=== PATIENT | female | born 1930 | race Caucasian/White ===

== ENCOUNTER 2017-05-09 10:14 | Inpatient (IN) | payer MEDICARE ==
--- NOTE | 2017-05-09 10:46 | ED ---
General Adult HPI - General Chief complaint: Arrhythmia/Palpitations Stated complaint: Irregular heart beat Time Seen by Provider: 05/09/17 10:36 Source: patient, family, RN notes reviewed Mode of arrival: wheelchair Limitations: no limitations - History of Present Illness Initial comments: Patient is a pleasant 86-year-old female presenting to the emergency Department with new-onset atrial fibrillation. Patient was at the doctor's office did notice atrial fibrillation with rate between 101 110. No history of similar symptoms previously. Dr. English did call and request patient evaluation with cardiology consult. Patient otherwise feels fine. Patient has no complaints of chest discomfort or fatigue or dyspnea. No palpitations. - Related Data Home Medications Medication Instructions Recorded Confirmed Insulin Detemir [Levemir Flextouch] 25 mg PO HS 05/09/17 05/09/17 Lisinopril-Hctz 20-25 mg 1 tab PO DAILY 05/09/17 05/09/17 [Zestoretic 20-25] Lovastatin [Mevacor] 20 mg PO DAILY 05/09/17 05/09/17 Metoprolol Succinate (ER) [Toprol 100 mg PO DAILY 05/09/17 05/09/17 Xl] Mirabegron [Myrbetriq] 50 mg PO DAILY 05/09/17 05/09/17 Prazosin [Minipress] 5 mg PO BID 05/09/17 05/09/17 Allergies Allergy/AdvReac Type Severity Reaction Status Date / Time Sulfa (Sulfonamide Allergy Unknown Verified 05/09/17 10:27 Antibiotics) Review of Systems ROS Statement: Those systems with pertinent positive or pertinent negative responses have been documented in the HPI. ROS Other: All systems not noted in ROS Statement are negative. Constitutional: Denies: fever Eyes: Denies: eye pain ENT: Denies: ear pain Respiratory: Denies: cough, dyspnea Cardiovascular: Denies: chest pain Endocrine: Denies: fatigue Gastrointestinal: Denies: abdominal pain Genitourinary: Denies: dysuria Musculoskeletal: Denies: back pain Skin: Denies: rash Neurological: Denies: weakness Past Medical History Past Medical History: Diabetes Mellitus, Hyperlipidemia, Hypertension History of Any Multi-Drug Resistant Organisms: None Reported Past Psychological History: No Psychological Hx Reported Smoking Status: Never smoker Past Alcohol Use History: None Reported Past Drug Use History: None Reported General Exam Limitations: no limitations General appearance: alert, in no apparent distress Head exam: Present: atraumatic Eye exam: Present: normal appearance, PERRL ENT exam: Present: normal oropharynx Neck exam: Present: normal inspection Respiratory exam: Present: normal lung sounds bilaterally Cardiovascular Exam: Present: tachycardia, irregular rhythm GI/Abdominal exam: Present: soft. Absent: tenderness Extremities exam: Present: normal inspection Neurological exam: Present: alert Psychiatric exam: Present: normal affect, normal mood Skin exam: Present: normal color Course Vital Signs 05/09/17 10:24 Temperature 97.8 F Pulse Rate 142 H Respiratory 20 Rate Blood Pressure 172/105 O2 Sat by Pulse 99 Oximetry EKG Findings - EKG Comments: EKG Findings:: A. fib with RVR, rate 109. QRS 98. QT 334. QTC 449. Normal axis. Normal QRS. Nonspecific ST-T. Medical Decision Making - Medical Decision Making Patient reevaluated and heart rate has improved. Heart rate between 101 7 Cardizem. Case discussed with practitioner Leah who will admit for Dr. hall, who is covering for hospital call. - Lab Data Result diagrams: 05/09/17 10:45 05/09/17 10:45 Lab Results 05/09/17 05/09/17 05/09/17 Range/Units 10:45 10:45 10:45 WBC 7.6 (3.8-10.6) k/uL RBC 4.48 (3.80-5.40) m/uL Hgb 12.7 (11.4-16.0) gm/dL Hct 40.3 (34.0-46.0) % MCV 90.1 (80.0-100.0) fL MCH 28.4 (25.0-35.0) pg MCHC 31.5 (31.0-37.0) g/dL RDW 13.6 (11.5-15.5) % Plt Count 217 (150-450) k/uL Neutrophils % 63 % Lymphocytes % 27 % Monocytes % 5 % Eosinophils % 2 % Basophils % 1 % Neutrophils # 4.8 (1.3-7.7) k/uL Lymphocytes # 2.0 (1.0-4.8) k/uL Monocytes # 0.4 (0-1.0) k/uL Eosinophils # 0.1 (0-0.7) k/uL Basophils # 0.1 (0-0.2) k/uL PT (9.0-12.0) sec INR (<1.1) APTT (22.0-30.0) sec Sodium 143 (137-145) mmol/L Potassium 4.1 (3.5-5.1) mmol/L Chloride 102 (98-107) mmol/L Carbon Dioxide 28 (22-30) mmol/L Anion Gap 13 mmol/L BUN 18 H (7-17) mg/dL Creatinine 0.80 (0.52-1.04) mg/dL Est GFR (MDRD) Af Amer >60 (>60 ml/min/1.73 sqM) Est GFR (MDRD) Non-Af >60 (>60 ml/min/1.73 sqM) Glucose 85 (74-99) mg/dL POC Glucose (mg/dL) (75-99) mg/dL POC Glu Sr. Logistics Analyst ID Calcium 10.2 (8.4-10.2) mg/dL Magnesium 1.6 (1.6-2.3) mg/dL Total Bilirubin 0.9 (0.2-1.3) mg/dL AST 19 (14-36) U/L ALT 27 (9-52) U/L Alkaline Phosphatase 68 (38-126) U/L Total Creatine Kinase 57 (30-135) U/L CK-MB (CK-2) 0.7 (0.0-2.4) ng/mL CK-MB (CK-2) Rel Index 1.2 Troponin I <0.012 (0.000-0.034) ng/mL Total Protein 8.1 (6.3-8.2) g/dL Albumin 4.5 (3.5-5.0) g/dL TSH 1.570 (0.465-4.680) mIU/L Free T4 1.41 (0.78-2.19) ng/dL Free T3 pg/mL 3.1 (2.8-5.3) pg/ml 05/09/17 05/09/17 Range/Units 10:45 13:19 WBC (3.8-10.6) k/uL RBC (3.80-5.40) m/uL Hgb (11.4-16.0) gm/dL Hct (34.0-46.0) % MCV (80.0-100.0) fL MCH (25.0-35.0) pg MCHC (31.0-37.0) g/dL RDW (11.5-15.5) % Plt Count (150-450) k/uL Neutrophils % % Lymphocytes % % Monocytes % % Eosinophils % % Basophils % % Neutrophils # (1.3-7.7) k/uL Lymphocytes # (1.0-4.8) k/uL Monocytes # (0-1.0) k/uL Eosinophils # (0-0.7) k/uL Basophils # (0-0.2) k/uL PT 11.2 (9.0-12.0) sec INR 1.1 (<1.1) APTT 25.0 (22.0-30.0) sec Sodium (137-145) mmol/L Potassium (3.5-5.1) mmol/L Chloride (98-107) mmol/L Carbon Dioxide (22-30) mmol/L Anion Gap mmol/L BUN (7-17) mg/dL Creatinine (0.52-1.04) mg/dL Est GFR (MDRD) Af Amer (>60 ml/min/1.73 sqM) Est GFR (MDRD) Non-Af (>60 ml/min/1.73 sqM) Glucose (74-99) mg/dL POC Glucose (mg/dL) 113 H (75-99) mg/dL POC Glu Sr. Logistics Analyst ID McDaid, Lilian Calcium (8.4-10.2) mg/dL Magnesium (1.6-2.3) mg/dL Total Bilirubin (0.2-1.3) mg/dL AST (14-36) U/L ALT (9-52) U/L Alkaline Phosphatase (38-126) U/L Total Creatine Kinase (30-135) U/L CK-MB (CK-2) (0.0-2.4) ng/mL CK-MB (CK-2) Rel Index Troponin I (0.000-0.034) ng/mL Total Protein (6.3-8.2) g/dL Albumin (3.5-5.0) g/dL TSH (0.465-4.680) mIU/L Free T4 (0.78-2.19) ng/dL Free T3 pg/mL (2.8-5.3) pg/ml - Radiology Data Radiology results: image reviewed (1 view chest x-ray shows cardiomegaly. Old right proximal humerus fracture.) Critical Care Time Critical Care Time: Yes Total Critical Care Time: 31 Disposition Clinical Impression: Atrial fibrillation with RVR Disposition: ADMITTED IP TO THIS [facility] Referrals: Rodo English MD [Primary Care Provider] - 1-2 days Decision Time: 14:04
[2017-05-09] MEDS ORDERED: DILTIAZEM 5 MG/ML 5 ML VIAL IVP STA (10:50)
--- NOTE | 2017-05-09 12:46 | XR ---
EXAMINATION TYPE: XR chest 1V portable DATE OF EXAM: 05/09/2017 COMPARISON: 06/19/2012 HISTORY: Irregular heartbeat TECHNIQUE: Single frontal view of the chest is obtained. FINDINGS: Heart is enlarged. Chronic deformity of the right humerus suggest previous trauma. No over t failure, pneumothorax or focal pneumonia. Underlying COPD not excluded. IMPRESSION: Cardiomegaly
[2017-05-09 12:51] LABS: Basophils # (A) 0.1 k/uL (0-0.2); Basophils % (A) 1 %; CH 28.6; CHCM 31.9; Eosinophils # (A) 0.1 k/uL (0-0.7); Eosinophils % (A) 2 %; HCT 40.3 % (34.0-46.0); HDW 2.31; HGB 12.7 gm/dL (11.4-16.0); Luc # (Auto) 0.18; Luc % (Auto) 2; Lymphocytes % (A) 27 %; MCH 28.4 pg (25.0-35.0); MCHC 31.5 g/dL (31.0-37.0); MCV 90.1 fL (80.0-100.0); Mean Platelet Volume 9.2; Monocytes # (A) 0.4 k/uL (0-1.0); Monocytes % (A) 5 %; Neutrophils # (A) 4.8 k/uL (1.3-7.7); Neutrophils % (A) 63 %; RBC 4.48 m/uL (3.80-5.40); RDW 13.6 % (11.5-15.5); WBC 7.6 k/uL (3.8-10.6); WBC (Perox) 7.55
[2017-05-09] MEDS: DILTIAZEM 125 MG in SODIUM CHLORIDE 0.9% 100 ML IV ONE (12:57)
[2017-05-09 13:04] LABS: INR 1.1 (<1.1); Prothrombin Time 11.2 sec (9.0-12.0)
[2017-05-09 13:09] LABS: ALT 27 U/L (9-52); AST 19 U/L (14-36); Alkaline Phosphatase 68 U/L (38-126); Anion Gap 13 mmol/L; Blood Urea Nitrogen 18 mg/dL (7-17); Calcium 10.2 mg/dL (8.4-10.2); Carbon Dioxide 28 mmol/L (22-30); Chloride 102 mmol/L (98-107); Glucose 85 mg/dL (74-99); Magnesium 1.6 mg/dL (1.6-2.3); Non-African American GFR(MDRD) >60 (>60 ml/min/1.73 sqM); Potassium 4.1 mmol/L (3.5-5.1); Sodium 143 mmol/L (137-145); Total Bilirubin 0.9 mg/dL (0.2-1.3); Total Protein 8.1 g/dL (6.3-8.2)
[2017-05-09 13:20] LABS: Glucose,Whole Blood 113 mg/dL (75-99)
[2017-05-09 13:21] LABS: Creatine Kinase 57 U/L (30-135)
[2017-05-09 13:32] LABS: Creatine Kinase MB 0.7 ng/mL (0.0-2.4); Troponin I <0.012 ng/mL (0.000-0.034)
[2017-05-09] MEDS ORDERED: HEPARIN SODIUM,PORCINE 5,000 UNIT/ML 1 ML VIAL IV ONE (14:04)
[2017-05-09] MEDS ORDERED: ASPIRIN 81 MG CHEW PO STA (14:04)
[2017-05-09] MEDS ORDERED: NITROGLYCERIN SL TABS 0.4 MG TAB SUBLINGUAL PRN (14:04)
[2017-05-09] MEDS ORDERED: HEPARIN SODIUM,PORCINE 5,000 UNIT/ML 1 ML VIAL IV PRN (14:04)
[2017-05-09] MEDS ORDERED: HEPARIN SODIUM,PORCINE/D5W PMX 25,000 UNIT in DEXTROSE/WATER 1 500ML.BAG IV SCH (14:15)
[2017-05-09 16:44] LABS: Glucose,Whole Blood 124 mg/dL (75-99)
[2017-05-09] MEDS: INSULIN LISPRO (humaLOG) 300 UNIT/3 ML VIAL SQ SCH ×2 (17:04→20:54)
[2017-05-09 17:08] LABS: Creatine Kinase 77 U/L (30-135)
[2017-05-09 17:21] LABS: Troponin I <0.012 ng/mL (0.000-0.034)
[2017-05-09] MEDS: PRAZOSIN 1 MG CAP PO SCH (20:49)
[2017-05-09 20:55] LABS: Glucose,Whole Blood 104 mg/dL (75-99)
[2017-05-09] MEDS ORDERED: INSULIN DETEMIR 100 UNIT/ML 10 ML VIAL SQ SCH (21:00)
[2017-05-09 22:27] LABS: Creatine Kinase 102 U/L (30-135)
[2017-05-09 22:40] LABS: Creatine Kinase MB 1.7 ng/mL (0.0-2.4); Troponin I <0.012 ng/mL (0.000-0.034)
[2017-05-10 05:43] VITALS: RESP 18
[2017-05-10 05:56] LABS: Glucose,Whole Blood 85 mg/dL (75-99)
[2017-05-10] MEDS: INSULIN LISPRO (humaLOG) 300 UNIT/3 ML VIAL SQ SCH ×2 (06:23→11:50)
[2017-05-10 06:28] LABS: Cholesterol 119 mg/dL (<200); HDL Cholesterol 33 mg/dL (40-60); Triglycerides 82 mg/dL (<150)
--- NOTE | 2017-05-10 06:28 | HP ---
DATE OF ADMISSION: 05/09/2017 PRESENTING COMPLAINT: Irregular heartbeat. HISTORY OF PRESENTING COMPLAINT: This is a pleasant 86-year-old patient of Dr. English. Patient was in the doctor's office and discovered to have atrial fibrillation running about one teens on EKG and patient sent down to the ER. Patient slightly feels weak and tired, but no other major symptoms. No chest pain or palpitations. Patient's chronic stable medical conditions include diabetes, hypertension, hyperlipidemia, osteoarthritis, urinary incontinence. Patient is sitting up in bed, comfortable. REVIEW OF SYSTEMS: CONSTITUTIONAL: Tired. HEENT: Decreased hearing. RESPIRATORY: Slight short of breath. CARDIOVASCULAR: As above. GASTROINTESTINAL: None GENITOURINARY: Urinary incontinence. DERMATOLOGICAL: None. HEMATOLOGICAL: None. LYMPHATIC: None. PSYCHIATRY: None. NEUROLOGICAL: None. MUSCULOSKELETAL: Pain in multiple joints. PAST HISTORY: Diabetes, hypertension, hyperlipidemia, osteoarthritis, urinary incontinence, claustrophobia. PAST SURGICAL HISTORY: Orthopedic surgery, tonsillectomy, ORIF of the left knee, hemorrhoidectomy, cataracts. SOCIAL HISTORY: Patient is . Does not smoke. No alcohol. FAMILY HISTORY: Dementia, hypertension. HOME MEDICATIONS: 1. Toprol XL 100 mg a day. 2. Minipress 5 mg p.o. b.i.d. 3. Myrbetriq 50 mg p.o. daily. 4. Mevacor 20 mg a day. 5. Zestoretic 20/25 one tablet p.o. daily. 6. Levemir 25 units subcu q.h.s. Allergies to SULFA. ON EXAMINATION: VITAL SIGNS ON PRESENTATION: Temperature 97.8, pulse 142, respirations 20, blood pressure 172/105, pulse ox 99% on room air. GENERAL APPEARANCE: Average built, sitting up, not in distress. EYES: Pupils equal. Conjunctivae normal. HEENT: External appearance of the nose and ears nose. Oral cavity normal. NECK: JVD not raised. Mass not palpable. RESPIRATORY: Effort normal. LUNGS: Fair air entry. CARDIOVASCULAR: Heart ( ) irregular. No edema. ABDOMEN: Soft, nontender. Liver and spleen not palpable. LYMPHATIC: No lymph node palpable in neck or axillae. PSYCHIATRY: Alert and oriented x3. Mood and affect normal. NEUROLOGICAL: Pupils equal. Cranial nerves grossly intact. Power and sensation grossly intact. INVESTIGATIONS: White count 7.6, hemoglobin 12.7. Potassium 4.1. BUN 18, creatinine 0.80. Accu-Cheks are noted. Troponin x2 are negative. TSH is 1.5. ASSESSMENT: 1. New onset of atrial fibrillation with rapid ventricular rate, age undetermined. 2. Obesity; body mass index 30.3. 3. Diabetes mellitus, type 2, chronically on insulin. 4. Essential hypertension. 5. Hyperlipidemia. 6. 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 7. Chronic urinary stress incontinence. PLAN: Patient is already on beta osiris. Was put on IV heparin in the ER. Put on a Cardizem drip. Cardiology was consulted. Care was discussed with the patient.
--- NOTE | 2017-05-10 08:27 | P.CRDCN ---
History of Present Illness Consult date: 05/10/17 Requesting physician: Hadley Espinal Consult reason: atrial fibrillation Chief complaint: Atrial Fibrillation History of present illness: This is a pleasant 86-year-old female with history of hypertension, diabetes, hyperlipidemia, she is a nonsmoker, no alcohol, rare caffeine, who was at her routine office visit with her primary care doctor yesterday, and EKG was performed in the office which revealed atrial fibrillation, and for this reason patient was referred to the hospital for admission. Patient denies any prior history of atrial fibrillation. She denies any palpitations, no shortness of breath, no dizziness or lightheadedness. EKG on arrival here showed atrial fibrillation with a heart rate of 109 on arrival. Chest x-ray revealed cardiomegaly. CBC normal, potassium 4.1, BUN 18, creatinine 0.8. Troponins are negative 3. Magnesium level I.6. TSH 1.5, free T4 1 0.4, free T3 3 0.1. Rhythm this morning shows atrial fibrillation with a heart rate in the 80s. Patient is currently on a Cardizem drip at 5 mg per hour and a heparin drip. I did educate the patient this morning regarding the need for anticoagulation for stroke prevention. We will check to see if the patient has coverage for Eliquis. Echocardiogram with Doppler study has been requested. Past Medical History Past Medical History: Diabetes Mellitus, Hyperlipidemia, Hypertension, Memory Impairment, Osteoarthritis (OA) Additional Past Medical History / Comment(s): PAST FALLS, FX RT KNEE(HAD SX), PAST FX RT WRIST,INCONT OF URINE WEARS A BRIEF, SHORT TERM MEMOEY PROBLEMS. EXCORIATION TO BOTTOM. History of Any Multi-Drug Resistant Organisms: None Reported Past Surgical History: Orthopedic Surgery, Tonsillectomy Additional Past Surgical History / Comment(s): ORIF LT KNEE 2011, HEMORROIDECTOMY, CATARACTS. Past Anesthesia/Blood Transfusion Reactions: No Reported Reaction Additional Past Anesthesia/Blood Transfusion Reaction / Comment(s): CLAUSTERPHOBIA Past Psychological History: No Psychological Hx Reported Additional Psychological History / Comment(s): PT LIVES WITH HER AND 1 CAT IN A 1 LEVEL HOME THAT HAS 5 STEPS TO ENTER. PT USES A CANE. NO OTHER MEDICAL EQUIPMNET. NO OUTSIUDE SERVICES. Smoking Status: Former smoker Past Alcohol Use History: None Reported Additional Past Alcohol Use History / Comment(s): PER PT'S DAUGHTER, PT SMOKED FOR 10 YEARS(STARTED 1951) AND QUIT 55 EYARS AGO(1961), 1 PACK WOULD LAST A WEEK. Past Drug Use History: None Reported - Past Family History Mother Family Medical History: Dementia, Hypertension Father Family Medical History: No Reported History Additional Family Medical History / Comment(s): FROM OLD AGE. Medications and Allergies Home Medications Medication Instructions Recorded Confirmed Type Insulin Detemir [Levemir Flextouch] 25 mg PO HS 05/09/17 05/09/17 History Lisinopril-Hctz 20-25 mg 1 tab PO DAILY 05/09/17 05/09/17 History [Zestoretic 20-25] Lovastatin [Mevacor] 20 mg PO DAILY 05/09/17 05/09/17 History Metoprolol Succinate (ER) [Toprol 100 mg PO DAILY 05/09/17 05/09/17 History Xl] Mirabegron [Myrbetriq] 50 mg PO DAILY 05/09/17 05/09/17 History Prazosin [Minipress] 5 mg PO BID 05/09/17 05/09/17 History Allergies Allergy/AdvReac Type Severity Reaction Status Date / Time Sulfa (Sulfonamide Allergy Unknown Verified 05/09/17 10:27 Antibiotics) Physical Exam Vitals: Vital Signs Temp Pulse Pulse Resp BP BP Pulse Ox 05/10/17 04:00 97.3 F L 75 18 143/86 96 05/10/17 00:03 73 16 106/55 96 05/09/17 20:00 97.1 F L 77 16 142/66 97 05/09/17 15:33 96.7 F L 89 18 129/70 95 05/09/17 14:45 86 20 158/92 100 05/09/17 14:23 97.8 F 100 20 168/79 98 05/09/17 13:23 98 F 104 H 20 155/95 99 05/09/17 10:24 97.8 F 142 H 20 172/105 99 Intake and Output 05/09/17 05/10/17 05/10/17 22:59 06:59 14:59 Intake Total 165.315 Balance 165.315 Intake: Intake, IV Titration 165.315 Amount Heparin Sodium,Porcine/ 165.315 D5w Pmx 25,000 unit In Dextrose/Water 1 500ml. bag @ 12 UNITS/KG/HR 19. 26 mls/hr IV .Q24H [facility] Rx #:[id number] Other: # Voids 2 1 Weight 80.2 kg 80.5 kg PHYSICAL EXAMINATION: HEENT: Head is atraumatic, normocephalic. Pupils equal, round. Neck is supple. There is no elevated jugular venous pressure. HEART EXAMINATION: Heart S1 and S2 irregularly irregular a systolic murmur is heard CHEST EXAMINATION: Lungs are clear to auscultation and precussion. No chest wall tenderness is noted on palpation or with deep breathing. ABDOMEN: Soft, obese, nontender. Bowel sounds are heard. No organomegaly noted. EXTREMITIES: 2+ peripheral pulses with evidence of peripheral edema and no calf tenderness noted. NEUROLOGIC patient is awake, alert and oriented -3.] . Results 05/09/17 10:45 05/09/17 10:45 Cardiac Enzymes 05/09/17 05/09/17 05/09/17 Range/Units 10:45 10:45 16:34 AST 19 (14-36) U/L CK-MB (CK-2) 0.7 1.0 (0.0-2.4) ng/mL Troponin I <0.012 <0.012 (0.000-0.034) ng/mL 05/09/17 Range/Units 21:47 AST (14-36) U/L CK-MB (CK-2) 1.7 (0.0-2.4) ng/mL Troponin I <0.012 (0.000-0.034) ng/mL Coagulation 05/09/17 05/09/17 05/10/17 Range/Units 10:45 21:47 05:38 PT 11.2 (9.0-12.0) sec APTT 25.0 85.6 H 50.9 H (22.0-30.0) sec Lipids 05/10/17 Range/Units 05:38 Triglycerides 82 (<150) mg/dL Cholesterol 119 (<200) mg/dL HDL Cholesterol 33 L (40-60) mg/dL CBC 05/09/17 Range/Units 10:45 WBC 7.6 (3.8-10.6) k/uL RBC 4.48 (3.80-5.40) m/uL Hgb 12.7 (11.4-16.0) gm/dL Hct 40.3 (34.0-46.0) % Plt Count 217 (150-450) k/uL Comprehensive Metabolic Panel 05/09/17 Range/Units 10:45 Sodium 143 (137-145) mmol/L Potassium 4.1 (3.5-5.1) mmol/L Chloride 102 (98-107) mmol/L Carbon Dioxide 28 (22-30) mmol/L BUN 18 H (7-17) mg/dL Creatinine 0.80 (0.52-1.04) mg/dL Glucose 85 (74-99) mg/dL Calcium 10.2 (8.4-10.2) mg/dL AST 19 (14-36) U/L ALT 27 (9-52) U/L Alkaline Phosphatase 68 (38-126) U/L Total Protein 8.1 (6.3-8.2) g/dL Albumin 4.5 (3.5-5.0) g/dL Current Medications Generic Name Dose Route Start Last Admin Trade Name Freq PRN Reason Stop Dose Admin Aspirin 325 mg 05/10/17 09:00 Aspirin PO DAILY [facility] Atorvastatin Calcium 10 mg 05/10/17 09:00 Lipitor PO DAILY [facility] Lisinopril/HCTZ 1 each 05/10/17 09:00 Zestoretic 20-25 PO DAILY [facility] Heparin Sodium (Porcine) 0 unit 05/09/17 14:04 Heparin IV Q6HR PRN Low PTT Protocol Diltiazem HCl 125 mg/ Sodium 125 mls @ 5 mls/hr 05/09/17 10:50 05/09/17 12:57 Chloride IV 05/10/17 10:49 5 mg/hr .Q24H ONE 5 mls/hr 5 MG/HR Administration Heparin Sodium/Dextrose 25,000 500 mls @ 19.26 mls/hr 05/09/17 14:15 23:19 unit/ IV Solution IV 10 units/kg/hr .Q24H [facility] 16.05 mls/hr Protocol Titration 12 UNITS/KG/HR Insulin Detemir 25 unit 05/09/17 21:00 05/09/17 21:06 Levemir SQ 25 unit HS [facility] Administration Insulin Human Lispro 0 unit 05/09/17 17:30 05/10/17 06:23 Humalog SQ Not Given ACHS [facility] Protocol Metoprolol Succinate 100 mg 05/10/17 09:00 Toprol Xl PO DAILY [facility] Nitroglycerin 0.4 mg 05/09/17 14:04 Nitrostat SUBLINGUAL Q5M PRN Chest Pain Oxybutynin Chloride 10 mg 05/10/17 09:00 Ditropan Xl PO DAILY [facility] Prazosin HCl 5 mg 05/09/17 21:00 05/09/17 20:49 Minipress PO 5 mg BID [facility] Administration Intake and Output 05/09/17 05/10/17 05/10/17 22:59 06:59 14:59 Intake Total 165.315 Balance 165.315 Intake: Intake, IV Titration 165.315 Amount Heparin Sodium,Porcine/ 165.315 D5w Pmx 25,000 unit In Dextrose/Water 1 500ml. bag @ 12 UNITS/KG/HR 19. 26 mls/hr IV .Q24H [facility] Rx #:[id number] Other: # Voids 2 1 Weight 80.2 kg 80.5 kg 05/09/17 10:45 05/09/17 10:45 EKG Interpretations (text) EKG shows atrial fibrillation with a mildly rapid ventricular response Assessment and Plan Plan: Assessment and plan #1 atrial fibrillation, appears to be a new onset. TSH normal. #2 hypertension #3 hyperlipidemia #4 diabetes # 5 hypomagnesemia Plan We will review the echocardiogram with Doppler study. Decrease aspirin to 81 mg daily. Replace magnesium. We will check to see if the patient has coverage for one of the newer anticoagulants, in the meantime continue IV heparin. Further recommendations to follow. DNP note has been reviewed, I agree with a documented findings and plan of care. Patient was seen and examined.
[2017-05-10] MEDS ORDERED: OXYBUTYNIN XL 5 MG TAB.ER.24 PO SCH (09:00)
[2017-05-10] MEDS ORDERED: METOPROLOL SUCCINATE (ER) 100 MG TAB.ER.24H PO SCH (09:00)
[2017-05-10] MEDS ORDERED: ATORVASTATIN 10 MG TAB PO SCH (09:00)
[2017-05-10] MEDS ORDERED: ASPIRIN 325 MG TAB PO SCH (09:00)
[2017-05-10] MEDS ORDERED: LISINOPRIL-HCTZ 20-25 MG 1 EACH TAB PO SCH (09:00)
[2017-05-10] MEDS ORDERED: ASPIRIN 81 MG CHEW PO SCH (09:00)
[2017-05-10] MEDS: DILTIAZEM 125 MG in SODIUM CHLORIDE 0.9% 100 ML IV ONE (09:35)
[2017-05-10] MEDS: PRAZOSIN 1 MG CAP PO SCH (09:36)
[2017-05-10 11:00] LABS: Hemoglobin A1C 5.6 % (4.2-6.1)
[2017-05-10 11:10] LABS: Mean Platelet Volume 10.3
--- NOTE | 2017-05-10 11:10 | P.PN ---
Progress Note - Text This is an addendum to the dictated cardiology consultation. The patient has a history of hypertension, and diabetes mellitus was seen yesterday in a routine examination and was found to be in atrial fibrillation of unknown duration. She is asymptomatic and does not feel any different than her baseline. According to her, her last EKG was about a year ago. She is not very active physically but has not felt that her breathing is any different, she denies any palpitations or dizziness. She has no prior history of CHF, CVA or CAD. I have discussed with her and her daughter the risk of embolic phenomenon and recommended starting anticoagulation. She will be started on Eliquis and continue on the beta osiris. We will review the results for echocardiogram and depending on her progress further recommendations will be made. Thank you for this consult we will follow with you.
[2017-05-10] MEDS ORDERED: APIXABAN 2.5 MG TABLET PO SCH (11:15)
[2017-05-10] MEDS: MAGNESIUM SULFATE-D5W PMX 1 GM in DEXTROSE/WATER 1 100ML.BAG IVPB SCH ×2 (11:26→12:27)
--- NOTE | 2017-05-10 11:29 | ECHOF ---
Referral Reason:af MEASUREMENTS -------- HEIGHT: 162.6 cm WEIGHT: 79.8 kg BP: 143/86 IVSd: 1.5 cm (0.6 - 1.1) LVIDd: 4.2 cm (3.9 - 5.3) LVPWd: 1.5 cm (0.6 - 1.1) IVSs: 1.7 cm LVIDs: 2.0 cm LVPWs: 2.0 cm LAESV Index (A-L): 40.35 ml/m Ao Diam: 3.2 cm (2.0 - 3.7) AV Cusp: 1.3 cm (1.5 - 2.6) LA Diam: 4.9 cm (2.7 - 3.8) MV EXCURSION: 9.371 mm (> 18.000) MV EF SLOPE: 50 mm/s (70 - 150) EPSS: 0.5 cm MV E Sammy: 1.37 m/s MV DecT: 290 ms MV A Sammy: 0.44 m/s MV E/A Ratio: 3.12 AV maxP.61 mmHg AV meanP.54 mmHg RAP: 5.00 mmHg RVSP: 45.17 mmHg FINDINGS -------- Atrial fibrillation. This was a technically adequate study. There is moderate concentric left ventricular hypertrophy. Overall left ventricular systolic function is normal with, an EF between 55 - 60 %. The right ventricle is normal in size and function. LA is severely dilated >40 ml/m2 The right atrium is normal in size. Aortic valve is trileaflet and is moderately thickened. There is mild aortic stenosis present. Peak/mean gradient across the Aortic Valve is 23.61mmHg / 13.54mmHg. The mitral valve leaflets are mildly thickened. Severe mitral annular calcification present. Mild mitral regurgitation is present. Moderate tricuspid regurgitation present. There is mild pulmonary hypertension. The right ventricular systolic pressure, as measured by Doppler, is 45.17mmHg. Pulmonic valve appears structurally normal. The aortic root size is normal. The pericardium is normal. CONCLUSIONS -------- 1. Atrial fibrillation. 2. Peak/mean gradient across the Aortic Valve is 23.61mmHg / 13.54mmHg. 3. The mitral valve leaflets are mildly thickened. 4. Severe mitral annular calcification present. 5. Mild mitral regurgitation is present. 6. Moderate tricuspid regurgitation present. 7. There is mild pulmonary hypertension. 8. The right ventricular systolic pressure, as measured by Doppler, is 45.17mmHg. 9. Pulmonic valve appears structurally normal. 10. The aortic root size is normal. 11. The pericardium is normal. 12. This was a technically adequate study. 13. There is moderate concentric left ventricular hypertrophy. 14. Overall left ventricular systolic function is normal with, an EF between 55 - 60 %. 15. The right ventricle is normal in size and function. 16. LA is severely dilated >40 ml/m2 17. The right atrium is normal in size. 18. Aortic valve is trileaflet and is moderately thickened. 19. There is mild aortic stenosis present. TRAM INSPECTOR: Maria Elena Chen RDCS
[2017-05-10 11:31] LABS: Glucose,Whole Blood 94 mg/dL (75-99)
[2017-05-10 12:03] VITALS: BP 108/47; PULSE 77; TEMP 97.1
--- NOTE | 2017-05-10 15:19 | P.DS ---
Providers Date of admission: 05/09/17 14:04 Expected date of discharge: 05/10/17 Attending physician: Hadley Espinal Consults: 05/09/17 14:04 Consult Physician Urgent Consulting Provider: Mary Rodriguez Consult Reason/Comments: a fib Do you want consulting provider notified?: Yes Primary care physician: [facility] Course: FINAL DIAGNOSES: 1.New onset of atrial fibrillation with rapid ventricular rate, age undetermined. 2.Obesity, body mass index of 30.3. 3.Diabetes mellitus type 2 chronically on insulin. 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 On arrival heart rate was in the low 100s, IV heparin started Cardizem drip, cardiology was consulted. Today patient's heart rate is 70s to 90s and remains in atrial fibrillation. Patient was educated on the need for anticoagulation and verbalized understanding. Patient will receive Apixaban. Patient is ambulatory with a walker, tolerating her diet, moved her bowels, and cleared by cardiology for discharge. PHYSICAL EXAM Respiratory: diminished breath sounds bilaterally effort normal Cardiovascular: Irregular, controlled 70s to 90s, mild edema. DISPOSITION: Discharge home to the care of her family Procedures: ECHOCARDIOGRAM Atrial fibrillation, outer concentric left ventricular hypertrophy, EF between 55 and 60%, mild mitral regurgitation, moderate tricuspid regurgitation. Patient Condition at Discharge: Stable Plan - Discharge Summary New Discharge Prescriptions: New Apixaban [Eliquis] 2.5 mg PO BID #60 tab Fluticasone Nasal Magnolia [Flonase Nasal Magnolia] 2 spray EA NOSTRIL DAILY spray Nitroglycerin Sl Tabs [Nitrostat] 0.4 mg SUBLINGUAL Q5M PRN tab PRN Reason: Chest Pain Triamcinolone 0.5% Cream [Kenalog 0.5% Cream] 1 applic TOPICAL BID dose Continue Metoprolol Succinate (ER) [Toprol XL] 100 mg PO DAILY Prazosin [Minipress] 5 mg PO BID Mirabegron [Myrbetriq] 50 mg PO DAILY Lovastatin [Mevacor] 20 mg PO DAILY Lisinopril-Hctz 20-25 mg [Zestoretic 20-25] 1 tab PO DAILY Insulin Detemir [Levemir Flextouch] 25 mg PO HS Discharge Medication List Insulin Detemir [Levemir Flextouch] 25 mg PO HS 05/09/17 [History] Lisinopril-Hctz 20-25 mg [Zestoretic 20-25] 1 tab PO DAILY 05/09/17 [History] Lovastatin [Mevacor] 20 mg PO DAILY 05/09/17 [History] Metoprolol Succinate (ER) [Toprol XL] 100 mg PO DAILY 05/09/17 [History] Mirabegron [Myrbetriq] 50 mg PO DAILY 05/09/17 [History] Prazosin [Minipress] 5 mg PO BID 05/09/17 [History] Apixaban [Eliquis] 2.5 mg PO BID #60 tab 05/10/17 [Rx] Fluticasone Nasal Magnolia [Flonase Nasal Magnolia] 2 spray EA NOSTRIL DAILY spray [Rx] Nitroglycerin Sl Tabs [Nitrostat] 0.4 mg SUBLINGUAL Q5M PRN tab 05/10/17 [Rx] Triamcinolone 0.5% Cream [Kenalog 0.5% Cream] 1 applic TOPICAL BID dose [Rx] Follow up Appointment(s)/Referral(s): Roxann Hernandez MD [STAFF PHYSICIAN] - As Needed Rodo English MD [Primary Care Provider] - 1-2 days Mary Rodriguez MD [STAFF PHYSICIAN] - 1 Week Activity/Diet/Wound Care/Special Instructions: pt has a free 30day prescription for Eliquis fill in [facility] pharmacy. Discharge Disposition: HOME SELF-CARE
[2017-05-10] MEDS ORDERED: TRIAMCINOLONE ACET 0.5% CREAM 15 GM TUBE TOPICAL SCH (21:00)
[2017-05-11] MEDS ORDERED: FLUTICASONE 50MCG/SPRAY NASAL 16GM EA NOSTRIL SCH (09:00)
--- NOTE | 2017-05-11 12:26 | DS ---
DATE OF ADMISSION: 05/09/2017 DATE OF DISCHARGE: 05/10/2017 ATTENDING NOTE: This patient was seen and examined by me earlier today. I reviewed the discharge note by nurse practitioner, Ms. Conklin. Discussed additional findings below. This patient was admitted with atrial fibrillation, rate is controlled. Patient has been put on Eliquis by Dr. Rodriguez. ON EXAMINATION: HEART: Irregular. LUNGS: Clear. Patient is comfortable. I discussed with Dr. Rodriguez. No further changes in antiarrhythmics. Patient will follow with Dr. Rodriguez as an outpatient. Care was discussed with the patient.
--- NOTE | 2017-05-13 15:59 | CDI ---
In responding to this query, please exercise your independent professional judgment. The [facility] Coding Staff and Clinical Documentation Specialists appreciate your assistance in clarifying documentation, maintaining compliance with coding guidelines, accurately documenting patients condition and capturing severity of illness. The fact that a question is asked does not imply that any particular answer is desired or expected. Communication forms are a method of clarifying documentation and are not made part of the Legal Health Record. Thank you in advance for your clarification. Last Revision, September 2015 [address] [facility] [place] [address] Documentation Clarification Form Date: 05/13/2017 3:54:00 PM From: Katherine Hernandes Admit Date: 05/09/2017 2:04:00 PM Patient Name: Mohini Ngo Visit Number: [id number] Discharge Date: 05/10/17 Dr. Hadley Espinal Atrial fibrillation is documented in the H&P, DS, consult and PN. EKG/telemetry: Atrial fibrillation Treatment: Anticoagulation Consults: Cardiology- atrial fibrillation appears to be a new onset In your professional opinion, can you please clarify the type of atrial fibrillation, if known? Chronic/Permanent Paroxysmal Persistent Other, please specify Unable to determine Please document addendum in your discharge summary in order to capture severity of illness and risk of mortality. Include clinical findings that support your diagnosis. FYI: Press F11 to launch patient chart Place X here if this finding has no clinical significance, is not applicable or if you are not able to provide any additional documentation. LILLIAN Koenig, CCS, [facility] Certified [employer] Fre[employer] Elevator Erector/Zoology Professor/Freight Elevator Erector II If you have any questions or concerns please contact Gwendolyn Whitmore, Child And Family Counselor, Sheng Rodas @ [phone] [facility]
--- NOTE | 2017-05-20 19:53 | DS ---
DATE OF ADMISSION: 05/09/2017 DATE OF DISCHARGE: 05/10/2017 ADDENDUM: Persistent atrial fibrillation with rapid ventricular rate.
== END 2017-05-10 17:29 | disposition home or self-care (01) | DRG 310 ==
LOC: EC 10:14 → 6SEL 14:04
PROVIDERS: ADMIT Hospitalist; ATTEND Hospitalist
DX: I48.1 Persistent atrial fibrillation (principal); E11.69 Type 2 diabetes mellitus with other specified complication; I10 Essential (primary) hypertension; M19.91 Primary osteoarthritis, unspecified site; E78.5 Hyperlipidemia, unspecified; Z98.42 Cataract extraction status, left eye; Z98.41 Cataract extraction status, right eye; Z88.2 Allergy status to sulfonamides; Z79.4 Long term (current) use of insulin; Z79.899 Other long term (current) drug therapy; E66.9 Obesity, unspecified; Z68.30 Body mass index [BMI] 30.0-30.9, adult; N39.3 Stress incontinence (female) (male); Z82.49 Family history of ischemic heart disease and other diseases of the circulatory system; Z87.891 Personal history of nicotine dependence; I08.1 Rheumatic disorders of both mitral and tricuspid valves; E83.42 Hypomagnesemia
CPT/HCPCS: 36415; 71010; 80053; 80061; 82550; 82553; 83036; 83735; 84439; 84443; 84481; 84484; 85025; 85049; 85610; 85730; 93005; 93306; 96365; 96366; 96375; 96376; 99291